=== PATIENT | female | born 1960 | race Caucasian/White ===

== ENCOUNTER 2021-07-19 13:20 | Outpatient (REF) | payer OTHER, SELFPAY ==
[2021-07-19 14:11] LABS: COVID-19 Test Negative (Negative)
== END 2021-07-19 13:21 | disposition home or self-care (01) ==
LOC: HO.LAB 13:20
PROVIDERS: Visit Provider Internal Medicine
DX: Z20.822 Contact with and (suspected) exposure to COVID-19 (principal)
CPT/HCPCS: 87635; C9803